=== PATIENT | male | born 1955 | race Caucasian/White ===

== ENCOUNTER 2017-11-21 16:16 | Inpatient (IN) | payer BC ==
[~2017-11-21] VITALS: Ht 172.7 cm; Wt 86.5 kg
[2017-11-21 16:48] LABS: HEMATOCRIT 43.1 % (38.0-50.0); HEMOGLOBIN 15.7 G/DL (12.5-16.6); MCH 30.7 PG (29.0-34.0); MCHC 36.4 G/DL (30.0-36.0); MCV 84.2 FL (86-99); PLATELET COUNT 156 K/uL (156-360); RBC DIS.WIDTH-CV 12.5 % (11.8-14.6); RBC DIS.WIDTH-SD 38.5 % (39-53); RED BLOOD COUNT 5.12 M/uL (4.00-5.50)
[2017-11-21 16:57] LABS: CHLORIDE 99 mEq/L (99-109); POTASSIUM 4.4 mEq/L (3.7-5.4); SODIUM 135 mEq/L (136-147)
[2017-11-21 16:58] LABS: GLUCOSE 121 mg/dL (70-99)
[2017-11-21 17:02] LABS: CREATININE 0.9 mg/dL (0.6-1.3); GFR ESTIMATE (CALCULATED) > 59 mL/min/ (58.99-99999)
[2017-11-21 17:03] LABS: UREA NITROGEN (BUN) 10 mg/dL (9-23)
[2017-11-21 17:10] LABS: TROP-I INTERPRETATION NEGATIVE; TROPONIN-I < 0.01 ng/mL (0.0-0.30)
[2017-11-21 17:48] LABS: ALBUMIN 4.1 g/dL (3.2-4.8)
[2017-11-21 17:51] LABS: TOTAL PROTEIN 8.1 g/dL (6.4-8.3)
[2017-11-21 17:53] LABS: TOTAL BILIRUBIN 1.4 mg/dL (0.0-1.0)
[2017-11-21 17:54] LABS: ALKALINE PHOSPHATASE 56 IU/L (3-129)
[2017-11-21 17:56] LABS: AST (GOT) 30 IU/L (2-34); DIRECT BILIRUBIN 0.5 mg/dL (0.0-0.3)
[2017-11-21 17:57] LABS: ALT (GPT) 21 IU/L (3-49); LIPASE 29 U/L (1.0-51.0)
[2017-11-21 20:49] LABS: INTER. NORMALIZED RATIO 1.1
[2017-11-21] MEDS ORDERED: ERGOCALCIF50000 UNIT PO (21:00)
[2017-11-21] MEDS ORDERED: FOSINOPRIL SODI10 MG PO (21:01)
[2017-11-21] MEDS ORDERED: IBUPROFEN600 MG PO (21:03)
[2017-11-21 22:10] VITALS: BP 168/82
[2017-11-22 03:34] VITALS: BP 138/79
[2017-11-22 07:17] LABS: HEMATOCRIT 40.9 % (38.0-50.0); HEMOGLOBIN 14.4 G/DL (12.5-16.6); MCH 30.2 PG (29.0-34.0); MCHC 35.2 G/DL (30.0-36.0); MCV 85.7 FL (86-99); PLATELET COUNT 140 K/uL (156-360); RBC DIS.WIDTH-SD 40.5 % (39-53); RED BLOOD COUNT 4.77 M/uL (4.00-5.50); WHITE BLOOD COUNT 15.1 K/uL (4.1-10.2)
[2017-11-22 07:23] LABS: INTER. NORMALIZED RATIO 1.2
[2017-11-22 07:26] LABS: PTT 27.9 SEC (25-37)
[2017-11-22 07:31] VITALS: BP 142/73
[2017-11-22 07:39] LABS: ALBUMIN 3.6 G/DL (3.2-4.8); ALKALINE PHOSPHATASE 40 IU/L (3-129); ALT (GPT) 17 IU/L (3-49); AST (GOT) 25 IU/L (2-34); CHLORIDE 101 MEQ/L (99-109); CREATININE 0.9 MG/DL (0.6-1.3); GFR ESTIMATE (CALCULATED) > 59 mL/min/ (58.99-99999); GLUCOSE 105 mg/dL (70-99); SODIUM 135 MEQ/L (136-147); TOTAL BILIRUBIN 1.9 MG/DL (0.0-1.0); TOTAL PROTEIN 6.5 G/DL (6.4-8.3); UREA NITROGEN (BUN) 12 mg/dL (9-23)
[2017-11-22 11:37] VITALS: BP 127/65
[2017-11-22 15:43] VITALS: BP 139/76
[2017-11-22 19:28] VITALS: BP 135/70
[2017-11-22 21:11] LABS: APPEARANCE CLEAR ((CLEAR)); BILIRUBIN NEGATIVE; BLOOD NEGATIVE; COLOR YELLOW ((YELLOW)); GLUCOSE (STRIP) NEGATIVE; KETONES NEGATIVE; LEUKOCYTES NEGATIVE; NITRITE NEGATIVE; PROTEIN (STRIP) NEGATIVE; SPECIFIC GRAVITY 1.023 (1.000-1.030)
[2017-11-22 23:23] VITALS: BP 136/74
[2017-11-23 07:16] VITALS: BP 158/79
[2017-11-23 11:07] VITALS: BP 183/89
[2017-11-23 15:30] VITALS: BP 170/82
[2017-11-23 20:50] VITALS: BP 139/78
[2017-11-23 23:27] VITALS: BP 130/85
[2017-11-24 03:39] VITALS: BP 139/82
[2017-11-24 06:10] LABS: HEMATOCRIT 37.5 % (38.0-50.0); HEMOGLOBIN 12.7 G/DL (12.5-16.6); MCH 29.5 PG (29.0-34.0); MCHC 33.9 G/DL (30.0-36.0); PLATELET COUNT 151 K/uL (156-360); RBC DIS.WIDTH-CV 12.5 % (11.8-14.6); RBC DIS.WIDTH-SD 40.3 % (39-53); RED BLOOD COUNT 4.31 M/uL (4.00-5.50); WHITE BLOOD COUNT 12.1 K/uL (4.1-10.2)
[2017-11-24 06:14] LABS: ALBUMIN 3.1 G/DL (3.2-4.8); ALKALINE PHOSPHATASE 39 IU/L (3-129); ALT (GPT) 27 IU/L (3-49); CHLORIDE 98 MEQ/L (99-109); CREATININE 0.9 MG/DL (0.6-1.3); GFR ESTIMATE (CALCULATED) > 59 mL/min/ (58.99-99999); POTASSIUM 4.5 MEQ/L (3.7-5.4); SODIUM 133 MEQ/L (136-147); TOTAL BILIRUBIN 1.6 MG/DL (0.0-1.0); TOTAL PROTEIN 6.3 G/DL (6.4-8.3); UREA NITROGEN (BUN) 18 mg/dL (9-23)
[2017-11-24 06:20] LABS: AST (GOT) 47 IU/L (2-34); GLUCOSE 173 mg/dL (70-99)
[2017-11-24 06:45] VITALS: BP 130/72
[2017-11-24 08:12] VITALS: BP 148/83
[2017-11-24 10:44] VITALS: BP 140/68
[2017-11-24 17:12] VITALS: BP 158/89
[2017-11-25 00:21] VITALS: BP 120/68
[2017-11-25 06:02] LABS: HEMOGLOBIN 11.4 G/DL (12.5-16.6); MCH 30.2 PG (29.0-34.0); MCHC 34.5 G/DL (30.0-36.0); MCV 87.3 FL (86-99); PLATELET COUNT 170 K/uL (156-360); RBC DIS.WIDTH-CV 12.7 % (11.8-14.6); RBC DIS.WIDTH-SD 40.6 % (39-53); RED BLOOD COUNT 3.78 M/uL (4.00-5.50); WHITE BLOOD COUNT 12.2 K/uL (4.1-10.2)
[2017-11-25 06:37] LABS: ALBUMIN 2.8 G/DL (3.2-4.8); ALKALINE PHOSPHATASE 36 IU/L (3-129); ALT (GPT) 28 IU/L (3-49); AST (GOT) 50 IU/L (2-34); CHLORIDE 102 MEQ/L (99-109); CREATININE 0.8 MG/DL (0.6-1.3); GFR ESTIMATE (CALCULATED) > 59 mL/min/ (58.99-99999); POTASSIUM 4.2 MEQ/L (3.7-5.4); TOTAL PROTEIN 5.6 G/DL (6.4-8.3); UREA NITROGEN (BUN) 24 mg/dL (9-23)
[2017-11-25 06:44] LABS: GLUCOSE 108 mg/dL (70-99); SODIUM 140 MEQ/L (136-147); TOTAL BILIRUBIN 0.8 MG/DL (0.0-1.0)
[2017-11-25 07:31] VITALS: BP 129/77
[2017-11-25 16:12] VITALS: BP 134/81
[2017-11-26 00:26] VITALS: BP 125/75
[2017-11-26 06:19] LABS: BASOPHIL (%) 0.1 % (0-1); EOSINOPHIL (%) 0.4 % (0-5); HEMOGLOBIN 11.1 G/DL (12.5-16.6); IMMATURE GRANULOCYTE (%) 0.4 % (0.0-0.7); LYMPHOCYTE (%) 14.4 % (15-42); LYMPHOCYTE COUNT 1.1 K/uL (1.0-2.8); MCH 29.4 PG (29.0-34.0); MCHC 33.6 G/DL (30.0-36.0); MCV 87.3 FL (86-99); MONOCYTE (%) 13.4 % (3-12); NEUTROPHIL (%) 71.3 % (45-76); NEUTROPHIL COUNT 5.2 K/uL (1.8-6.4); PLATELET COUNT 180 K/uL (156-360); RBC DIS.WIDTH-CV 12.5 % (11.8-14.6); RBC DIS.WIDTH-SD 40.3 % (39-53); RED BLOOD COUNT 3.78 M/uL (4.00-5.50); WHITE BLOOD COUNT 7.3 K/uL (4.1-10.2)
[2017-11-26 06:54] LABS: ALBUMIN 2.8 G/DL (3.2-4.8); ALKALINE PHOSPHATASE 32 IU/L (3-129); ALT (GPT) 30 IU/L (3-49); AST (GOT) 49 IU/L (2-34); CHLORIDE 101 MEQ/L (99-109); CREATININE 0.8 MG/DL (0.6-1.3); GFR ESTIMATE (CALCULATED) > 59 mL/min/ (58.99-99999); POTASSIUM 3.9 MEQ/L (3.7-5.4); SODIUM 141 MEQ/L (136-147); TOTAL BILIRUBIN 0.8 MG/DL (0.0-1.0); TOTAL PROTEIN 5.8 G/DL (6.4-8.3); UREA NITROGEN (BUN) 19 mg/dL (9-23)
[2017-11-26 06:56] LABS: GLUCOSE 75 mg/dL (70-99)
[2017-11-26 07:44] VITALS: BP 138/79
[2017-11-26 16:24] VITALS: BP 135/82
[2017-11-26 23:24] VITALS: BP 139/91
[2017-11-27 04:00] VITALS: BP 140/86
[2017-11-27 04:36] VITALS: BP 140/86; BP 1401/86
[2017-11-27 08:10] VITALS: BP 138/86
[2017-11-27 16:59] VITALS: BP 157/82
[2017-11-28] VITALS: BP 147/84
[2017-11-28 01:12] VITALS: BP 147/84
[2017-11-28 05:52] LABS: BASOPHIL (%) 0.3 % (0-1); EOSINOPHIL (%) 3.1 % (0-5); EOSINOPHIL COUNT 0.2 K/uL (0-0.3); HEMATOCRIT 30.5 % (38.0-50.0); HEMOGLOBIN 10.7 G/DL (12.5-16.6); IMMATURE GRANULOCYTE (%) 1.8 % (0.0-0.7); LYMPHOCYTE (%) 17.4 % (15-42); LYMPHOCYTE COUNT 1.1 K/uL (1.0-2.8); MCHC 35.1 G/DL (30.0-36.0); MCV 85.4 FL (86-99); MONOCYTE (%) 14.8 % (3-12); MONOCYTE COUNT 0.9 K/uL (0-0.8); NEUTROPHIL (%) 62.6 % (45-76); NEUTROPHIL COUNT 3.8 K/uL (1.8-6.4); PLATELET COUNT 192 K/uL (156-360); RBC DIS.WIDTH-CV 12.2 % (11.8-14.6); RBC DIS.WIDTH-SD 38.2 % (39-53); RED BLOOD COUNT 3.57 M/uL (4.00-5.50); WHITE BLOOD COUNT 6.1 K/uL (4.1-10.2)
[2017-11-28 06:22] LABS: ALBUMIN 2.6 G/DL (3.2-4.8); ALKALINE PHOSPHATASE 36 IU/L (3-129); ALT (GPT) 36 IU/L (3-49); AST (GOT) 49 IU/L (2-34); CHLORIDE 100 MEQ/L (99-109); CREATININE 0.7 MG/DL (0.6-1.3); GFR ESTIMATE (CALCULATED) > 59 mL/min/ (58.99-99999); POTASSIUM 3.5 MEQ/L (3.7-5.4); SODIUM 136 MEQ/L (136-147); TOTAL BILIRUBIN 0.8 MG/DL (0.0-1.0); TOTAL PROTEIN 5.9 G/DL (6.4-8.3); UREA NITROGEN (BUN) 9 mg/dL (9-23)
[2017-11-28 06:24] LABS: GLUCOSE 107 mg/dL (70-99)
[2017-11-28 07:10] VITALS: BP 142/87
[2017-11-28 15:40] VITALS: BP 142/78
[2017-11-28] MEDS ORDERED: HYDROCODON-ACE1 EAC7 PO (16:59)
[2017-11-28] MEDS ORDERED: COLACE100 MG PO (17:03)
[2017-11-28] MEDS ORDERED: LEVAQUIN500 MG PO (17:09)
[2017-11-28] MEDS ORDERED: FLORASTOR250 MG PO (17:09)
== END 2017-11-28 19:55 | disposition home or self-care (01) | DRG 415 ==
LOC: EME 16:16 → EDOF 20:40 → 3EAST 20:40 → ENRESERV 21:00 → 3EAST 22:01
PROVIDERS: Emergency Medicine; Internal Medicine; Thoracic Surgery (Cardiothoracic Vascular Surgery)
DX: K80.00 Calculus of gallbladder with acute cholecystitis without obstruction (principal); D62 Acute posthemorrhagic anemia; I10 Essential (primary) hypertension; E78.5 Hyperlipidemia, unspecified; E87.6 Hypokalemia; M19.90 Unspecified osteoarthritis, unspecified site; N52.9 Male erectile dysfunction, unspecified
CPT/HCPCS: 71046; 74177; 76705; 80048; 80053; 80076; 81003; 83690; 83735; 84100; 84484; 85025; 85027; 85610; 85730; 87070; 87075; 87077; 87086; 87186; 87205; 88304; 93005; 97530 GP; 99281; 99285; J0330; J0360; J0690; J0696; J1100; J1170; J1644; J2250; J2270; J2405; J2710; J3010; J7040; J7120; S0028